=== PATIENT | female | born 1995 | race American Indian/Alaskan Native ===

== ENCOUNTER 2024-08-30 12:53 | Outpatient (CLI) | payer BC, SELFPAY ==
--- NOTE | 2024-08-30 13:00 | CRLHL7_ITS ---
For Patients: As a result of the Century Cures Act, medical imaging exams and procedure reports are released immediately into your electronic medical record. You may view this report before your referring provider. If you have questions, please contact your health care provider. INDICATION: First trimester dating and viability. TECHNIQUE: Ultrasound OB pelvis transabdominal and transvaginal. Real-time melissa-scale imaging of the pelvis was performed. COMPARISON: None. FINDINGS: Intrauterine gestation: Single. heart activity (bpm): Regular 169. [place]-rump length: 1.8 cm cm. Estimated ultrasound age: 8 weeks 2 day. GLO by ultrasound: 04/09/2025. Yolk sac: Normal. Perigestational hemorrhage: None. Ovaries and adnexa: Corpus luteal cyst is identified on the left side. Dominant follicle/simple cyst within the left ovary measuring 2.6 x 2.5 x 2.4 cm. Suspicious pelvic fluid collections: None. IMPRESSION: Single viable intrauterine with estimated gestational age of 8 weeks 2 days and GLO of 04/09/2025. Dictated by Rod Butts MD @ 08/31/2024 12:37:00 PM (Electronically Signed)
== END 2024-08-30 12:54 | disposition home or self-care (01) ==
LOC: US 12:54
PROVIDERS: Visit Provider Midwife
DX: Z34.91 Encounter for supervision of normal pregnancy, unspecified, first trimester (principal); Z3A.08 8 weeks gestation of pregnancy
CPT/HCPCS: 76817; 83021; 86703; 86706; 86803; 86850; 86900; 86901; 87086; 87340; 87491; 87591

== ENCOUNTER 2024-08-30 14:17 | Outpatient (CLI) | payer BC, SELFPAY ==
[2024-08-30 19:23] LABS: Chlamydia DNA Amplified* NOT DETECTED (No Detected); GC DNA Amplified* NOT DETECTED (No Detected)
== END 2024-08-30 14:18 | disposition home or self-care (01) ==
PROVIDERS: Visit Provider Midwife
DX: Z34.91 Encounter for supervision of normal pregnancy, unspecified, first trimester (principal); Z3A.08 8 weeks gestation of pregnancy
CPT/HCPCS: 83020; 83021; 85660; 86592; 86703; 86704; 86706; 86762; 86787; 86803; 86850; 86900; 86901; 87086; 87340; 87491; 87591

== ENCOUNTER 2024-12-01 10:49 | Outpatient (CLI) | payer BC, SELFPAY ==
--- OUTSIDE RECORDS SUMMARY | 2024-11-20 17:29 | XMS_ITS | Encounter Summary ---
Author Organization [facility] Address [address] [place] [address] Care Team Providers Care Truck Dispatcher Name Role Phone Benito Barnhart APRN, C.N.P. Primary Care Provi brayden Reason for Visit * Reason Comments Nausea Abdominal Pain Encounter Details Date Type Department Care Team (Latest Contact Info) Description 11/20/2024 5:29 PM CDT - 11/20/2024 5:55 PM CDT Hospital Encounter [facility], Third Floor [address] [place] [phone] Trice Carty M.D. [address] [place] [address] 20 Weeks Gestation (HCC) [Z3A.20] (Primary Dx) Discharge Disposition: Home or Self Care Social History Tobacco Use Types Packs/Day Years Used Date Smoking Tobacco: Former Cigarettes Q uit: 2017 Smokeless Tobacco: Never Alcohol Use Standard Drinks/Week Comments Not Currently 0 (1 standard drink = 0.6 oz pur e alcohol) [facility] Utilities Answer Date Recorded In the past 12 months has e electric, gas, oil, or water company threatened to shut off services in your home? No 08/22/2024 Hunger Vital Sign Answer Date Recorded Within the past 12 months, y ou worried that your food would run out before you got the money to buy more. Never true 08/23/19 25 Within the past 12 months, t he food you bought just didn't last and you didn't have money to get more. Never true 08/22/2024 PRAPARE - Transportation Answer Date Re corded In the past 12 months, has l ack of transportation kept you from medical appointments or from getting medications? No 08/05 In the past 12 months, has l ack of transportation kept you from meetings, work, or from getting things needed for daily living? No 08/22/2024 Depression Answer Date Recor ded PHQ-9 Total Score (max 27) 1 08/22 Housing Stability Answer Date Recorded What is your living situation today? 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 documented as of this encounter Progress Notes * Trice Carty M.D. - 11/20/2024 5:59 PM CDT SUBJECTIVE Roseanne Jaimes is a 29 y.o. with an Estimated Date of Delivery: 04/09/25. Gestational age is 20w0d determined by LMP. She presents with complaints of nausea and indigestion since yesterday evening. She noticed it after a meal and states it comes in waves. No emesis or diarrhea, no fever, some chills. Feels bloated and describes it like as if she had food poisoning. The nausea is associated with upper GI pain that also comes in waves. - Nutritional intake: tolerating PO - Medications trialed: Tums - Pertinent OB history or complications: none, per report. No history available for review. Has notyet had Anatomy scan. - No VB, LOF, FM is active, No ctx OB History Para Term AB Living 1 SAB IAB Ectopic Molar Multiple Live Births # Outcome Date GA Lbr Ministerio/2nd Weight Sex Type Anes PTL Lv 1 Current REVIEW OF SYSTEMS A comprehensive review of systems was negative. OBJECTIVE VITAL SIGNS No ALLERGIES Allergies[1] PHYSICAL EXAM Constitutional: in NAD. Alert and oriented. Abd: Soft, mildly tender to palpation diffusely on both sides, periumbilical and RUQ/LUQ. No rebound or guarding. FHTs: normal on doppler [place]: no ctx palpated at bedside. Skin turgor: normal No results found for this or any previous visit (from the past 24 hours). Medications and/or IV fluids given: patient declined. ASSESSMENT / PLAN IRP: #1 Nausea and indigestion - Offered nausea Rx, and GI cocktail, patient declines. She thinks that normalizing her BM may alsohelp as she feels bloated. She may try dulcolax and MiraLAX. - DC to home. - Discussed natural methods for management (regular hydration, small, frequent meals, bland food) #3 Intra-uterine at 20w0d - Next visit: Next week PATIENT EDUCATION Ready to learn, barriers to learning: none; learning preferences include listening. Explained diagnosis and treatment plan; patient expressed understanding of the content. Trice Carty M.D. [1] No Known Allergies documented in this encounter Nursing Notes * Vannesa Suh R.N. - 11/20/2024 6:07 PM CDT Pt presents with complaints of upper abdominal cramping, indigestion and nausea. Denies emesis or diarrhea. Has been able to tolerate PO fluids. Dr. Carty in to discuss POC with pt. Pt discharged [place] with significant other. documented in this encounter Plan of Treatment Not on file documented as of this encounter Visit Diagnoses Diagnosis 20 Weeks Gestation (HCC) [Z3A.20]- Primary documented in this encounter Additional Health Concerns Assessment Noted Time PHQ-9 Depression Total Score: 1 08/23/19 25 8:09 AM CDT documented as of this encounter Care Teams Truck Dispatcher Relationship Specialty Start Date End Date Bentio Barnhart APRN, C.N.P. [address] [place] [phone] PCP - General 01/19/24 documented as of this encounter
--- NOTE | 2024-12-01 11:15 | CRLHL7_ITS ---
For Patients: As a result of the 21st Century Cures Act, medical imaging exams and procedure reports are released immediately into your electronic medical record. You may view this report before your referring provider. If you have questions, please contact your health care provider. OB ULTRASOUND SURVEY LMP: 07/03/2024. GLO by LMP: 04/09/2025. GA: 21 w, 4 d. INDICATION: FAS with TV TECHNIQUE: Real time melissa scale imaging of the fetus was performed. Evaluate anatomy. Transvaginal imaging performed. Transvaginal imaging performed to better evaluate the cervix, placental edge, and head. position: Vertex. Cervix: Visualized. Technique: Transvaginal. Length of closed cervix: 2.5 cm. No funneling. Placenta/cord: Anterior. Technique: Transvaginal. Placenta tip to internal OS: 3.6 cm. Umbilical Cord: 3-vessel cord. Placenta insertion: Central. Amniotic Fluid: 5.1 cm SDP (greater than/equal to: 2- less than 8 cm). SURVEY: Observed Structures. Calvarium/Spine: Cerebellum: Suboptimal. Cisterna Magna: Suboptimal. Nuchal Fold: Suboptimal. Lateral Ventricle: 7.9 mm. CSP: Yes. Midline Falx: Yes. Choroid Plexus: Yes. Spine: Yes. Abdomen: Stomach: Yes. Abd Cord Insertion: Yes. Urinary Bladder: Yes. Kidneys: Yes. Diaphragm: Yes. Face: Nose/lips: Yes. Orbital view: Yes. Profile: Yes. Limbs: Upper Extremities: Yes. Lower Extremities: Yes. Hands: Yes. Feet: Yes. Vascular: 4-Chamber Heart: Yes. LVOT: Yes. RVOT: Yes. 3VV: Yes. 3VTV: Yes. BPD: 5.5 cm. 22 w, 6 d, 90 percent. HC: 20.5 cm. 22 w, 4 d, 81 percent. AC: 18.4 cm. 23 w, 1 d, 88 percent. FL: 4.1 cm. 23 w, 1 d, 87 percent. FL/AC ratio: 22.1 percent. HC/AC ratio: 1.1. heart rate: 152 bpm. age by this US: 23 w, 0 d. GLO by this US: 03/30/2025. EFW: 561.1 g. Weight: 1 lbs, 4 oz. Percentile by GLO: >97 percent. IMPRESSION: 1. Sonographic gestational age 23 weeks 0 days and sonographic due date 03/30/2025. Sonographic age is 10 days ahead of clinical age. 2. Estimated weight greater than 97th percentile. Abdominal circumference 88th percentile. 3. Difficult visualization of the head structures due to position. Short-term follow-up recommended. 4. Transvaginal cervical measurement is 2.5 cm. No funneling. Martínez Quintana M.D. Diagnostic Radiologist [email or web address] DSM/jj jj/Dictated by: Martínez Quintana MD @ 12/01/2024 4:05:00 PM (Electronically Signed)
--- OUTSIDE RECORDS SUMMARY | 2024-12-02 00:28 | XMS_ITS | Clinical Summary ---
Author Organization [facility] Address [address] [place] [address] Care Team Providers Care Senior It Business Analyst Name Role Phone Benito Barnhart APRN, C.NFidel Primary Care Provi brayden Source Comments Patient records contain information from all sites at [facility]. For routine questions regarding patient records, call [phone] during business hours, M-F 8:00 AM - 5:00 PM Central Time. Record requests for emergency care only can be directed to [phone] at any time[address] Allergies No known active allergies Medications multivit 23-vtbxyoid-fnq- chrom 2.5-200-1 mg-mg-mg capsule Take 1 tablet by mouth. 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 20 Weeks Gestation (HCC) [Z3A.20] (Primary Dx) Discharge Disposition: Home or Self Care from Last 3 Months Immunizations Immunization Administration Dates Next Due 4vHPV (discontinued) 01/06/2013,07/27/19 13,05/11/2012,2011 DTP 01/13/2001 DTP / Hib 1996,1996,1996 DTaP (Infanrix, Tripedia) 01/13/2001 DTaP / Hib 04/27/1997 DTaP, Unspecified 01/24/2008 HepB, Unspecified 1996,1996,01/12/19 96 IPV 01/13/2001 MMR 01/13/2001,04/27/1997 OPV 1996,1996,1996 Td Preservative Free (TENIVA C, DECAVAC) 12/20/2019 Tdap 01/24/2008 DYLLAN 01/24/2008,04/27/1997 Family History Medical History Relation Name Comments Diabetes type II Father History of substance abuse Father COPD Grandfather 1 maternal History of substance abuse Grandfather 1 maternal Cancer Grandfather 2 paternal Cancer Maternal Grandmother Relation Name Status Comments Father Grandfather 1 maternal Grandfather 2 paternal Maternal Grandmother Social History Tobacco Use Types Packs/Day Years Used Date Smoking Tobacco: Former Cigarettes Q uit: 2017 Smokeless Tobacco: Never Tobacco Cessation:Counseling Given: Not Answered Alcohol Use Standard Drinks/Week Comments Not Currently 0 (1 standard drink = 0.6 oz pur e alcohol) [facility] Utilities Answer Date Recorded In the past 12 months has e [employer], gas, oil, or water company threatened to [...] your living situation today? 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 Gender Identity Female 08/22/2024 8:10 AM CDT Sexual Orientation Straight 08/22/2024 8: 10 AM CDT Last Filed Vital Signs Vital Sign Reading Time Taken Comments Blood Pressure 107/61 11/20/2024 6:02 PM CDT Pulse 82 08/22/2024 8:15 AM CDT Temperature 36.3 C (97.3 F) 11/20/2024 6:02 PM CDT Respiratory Rate 18 11/20/2024 6:02 PM CDT Oxygen Saturation 100% 03/28/2022 2:00 PM CDT Inhaled Oxygen Concentration - - Weight 79.2 kg (174 lb 9.7 oz) 08/22/2024 8:15 A M CDT Height 173.9 cm (5' 8.47) 08/22/2024 8:15 AM CD T Body Mass Index 26.19 08/22/2024 8:15 AM CDT Plan of Treatment Health Maintenance Due Date Last Done Comments HIV Screening 1996 Pneumococcal vaccine (0-49 y ears) (1 of 2 - PCV) 01/11/2015 COVID-19 Vaccine ( - 2023-2 5 season) 2024 Influenza Vaccine (#1) 2024 Depression Monitoring (PHQ-9) 12/22/2024 08/22/2024 Tdap vaccine - (27- 36 weeks) (1 - Tdap) 01/08/2025 12/20/2019, 01/24/2008, 01/24/2008, Additional history exists RSV vaccine - (32-3 6 weeks) or 60+ years (1 - Risk 1-dose series) 02/12/2025 Cervical/Vaginal Cancer Screening 10/03/2026 10/04/2023, 10/04/2023, 12/20/2019, Additional history exists DTaP,Tdap,and Td Vaccines (9 - Td or Tdap) 12/19/2029 12/20/2019, 01/24/2008, 01/24/2008, Additional history exists Hepatitis B Vaccines Completed 1996, 1996, 1996 IPV Vaccines Completed 01/13/2001, 06/08, 1996, Additional history exists Varicella Vaccines Completed 01/24/2008, 04/27/1997 HPV Vaccines Completed 01/06/2013, 07/09, 05/11/2012, Additional history exists Hepatitis C Screening Completed 10/04/2023 Depression Monitoring (PHQ-9 for quality tracking) Completed 08/22/2024 Procedures Procedure Name Priority Date/Time Associated Diagnosis Comments HCV AB SCRN W/REFLEX TO HCV PCR, S Routine 10/04/2023 1:40 PM CDT Screening Test Laboratory HPV WITH GENOTYPING, PCR, THINPREP Routine 10/04/2023 1:23 PM CDT from Last 3 Months or Most Recently Relevant to Health Maintenance Results * HCV Ab Scrn w/Reflex to HCV PCR, Serum (10/04/2023 1:40 PM CDT) HCV Ab Screen, S Negative Negative 10/05/2023 2:22 AM CDT ECLR Blood (Blood, Venous) 10/04/2023 1:40 PM CDT 10/04/2023 9:03 PM CDT Narrative [facility] - 10/05/2023 2:22 AM CDT Specimen Information: Specimen ID: [id number] Specimen Type: Blood Specimen Collection Start Date: 10/04/2023 1:40 PM Specimen Received Date: 10/04/2023 9:03 PM Specimen ID: [id number] Specimen Type: Blood Specimen Collection Start Date: 10/04/2023 1:40 PM Specimen Received Date: 10/04/2023 9:03 PM us Joel Morrison APRN.N.P. , D.N.P. LAB MICROBIOLOGY - BLOOD ORDERABLES Final Result [facility] [address] [place] [id number], [facility] ECLR [facility] in [address] [address] * HPV with Genotyping, PCR, ThinPrep (10/04/2023 1:23 PM CDT) [facility] HPV with Genotyping, ThinPrep, PCR Negative Negative 10/05/2023 2:38 PM CDT ECLR Comment: Negative for high risk HPV by nucleic acid amplification. The following high risk HPV types were not detected: 16, 18, 31, 33, 35, 39, 45, 51, 52, 56, 58, 59, 66, and 68 This result does not rule out HPV in the patient, as the sensitivity of the test depends on the timing of the specimen collection and the quality of the specimen. Result should be correlated with patient's history, clinical presentation, and CELLAR SUPERVISOR cytology report. 10/04/2023 1:23 PM CDT 10/05/2023 10:39 AM CDT us Joel Morrison APRN.N.P. , D.N.P. LAB MICROBIOLOGY - GENERAL ORDERABLES Final Result [facility] [address] [place] [id number], [facility] ECLR [address] [place] [phone] from Last 3 Months or Most Recently Relevant to Health Maintenance Insurance [facility] [place] [id number] * Guarantor: Roseanne Jaimes Account Type Relation to Patient Date of Phone Billing Address Third Constitution Party Liability Self 1995 [id number] [place] [address] Care Teams Senior It Business Analyst Relationship Specialty Start Date End Date Benito Barnhart APRN, C.N.P. [address] [place] [address] [place] [id number] PCP - General 01/19/24
== END 2024-12-01 10:50 | disposition home or self-care (01) ==
LOC: US 10:49
PROVIDERS: Visit Provider Advanced Practice Midwife
DX: O28.3 Abnormal ultrasonic finding on antenatal screening of mother (principal); O36.62X0 Maternal care for excessive fetal growth, second trimester, not applicable or unspecified; Z3A.21 21 weeks gestation of pregnancy
CPT/HCPCS: 76805; 76817

== ENCOUNTER 2024-12-11 12:55 | Outpatient (CLI) | payer BC, SELFPAY | END 2024-12-11 12:56 | disposition home or self-care (01) | LOC: RAD 12:56 | PROVIDERS: Visit Provider Advanced Practice Midwife | DX: Q79.60 Ehlers-Danlos syndrome, unspecified (principal) | CPT/HCPCS: 93306 ==

== ENCOUNTER 2025-01-29 09:14 | Outpatient (CLI) | payer BC, SELFPAY | END 2025-01-29 09:15 | disposition home or self-care (01) | LOC: NFLDREF 09:14 | PROVIDERS: Visit Provider Advanced Practice Midwife | DX: Z34.03 Encounter for supervision of normal first pregnancy, third trimester (principal) | CPT/HCPCS: 86592 ==

== ENCOUNTER 2025-02-26 10:06 | Outpatient (CLI) | payer BC, SELFPAY ==
--- NOTE | 2025-02-26 10:15 | CRLHL7_ITS ---
For Patients: As a result of the Century Cures Act, medical imaging exams and procedure reports are released immediately into your electronic medical record. You may view this report before your referring provider. If you have questions, please contact your health care provider. GLO by LMP: 04/09/2025. GA: 34w, 0d. INDICATION: Check growth. CERVIX: Not visualized. POSITIONING: Vertex. AMNIOTIC FLUID: 7.1 cm SDP. PLACENTA: Technique: Transabdominal. PLACENTA POSITION: Anterior. DOPPLER: heart rate: 152 bpm. Biometry: BPD: 8.4 cm. 34w, 0d, 47 percent. HC: 31.4 cm. 35w, 1d, 43 percent. AC: 30.8 cm. 34w, 5d, 74 percent. FL: 7 cm. 36w, 0d, 88 percent. FL/AC ratio: 22.85 percent. HC/AC ratio: 1.02. EFW: 2579 g. Weight: 5 lbs, 11 oz. age by this US: 35w, 0d. GLO by this US: 04/02/2025. Percentile by GLO: 75 percent. IMPRESSION: Martínez Quintana M.D. Diagnostic Radiologist [email or web address] bM/Dictated by: Martínez Quintana MD @ 02/26/2025 3:47:00 PM (Electronically Signed)
== END 2025-02-26 10:07 | disposition home or self-care (01) ==
LOC: US 10:06
PROVIDERS: Visit Provider Midwife
DX: O28.3 Abnormal ultrasonic finding on antenatal screening of mother (principal); Z3A.34 34 weeks gestation of pregnancy
CPT/HCPCS: 76816

== ENCOUNTER 2025-03-14 11:23 | Outpatient (CLI) | payer BC, SELFPAY ==
[2025-03-15 12:07] LABS: Strep B DNA Probe Negative (Negative)
[2025-03-15 12:36] LABS: Strep B Susceptibility Needed? No
== END 2025-03-14 11:24 | disposition home or self-care (01) ==
LOC: NFLDREF 11:24
PROVIDERS: Visit Provider Midwife
DX: Z34.93 Encounter for supervision of normal pregnancy, unspecified, third trimester (principal)
CPT/HCPCS: 87081; 87653

== ENCOUNTER 2025-03-27 10:00 | Inpatient (IN) | payer BC, SELFPAY ==
[2025-03-27] VITALS (50 sets, daily range): BP systolic 115–136; BP diastolic 66–90; PULSE 61–101; RESP 16–22; TEMP 36.6–36.8; O2SAT 97–100; BMI 29.9
[2025-03-27 09:56] LABS: Amnisure Rom* POSITIVE
--- NOTE | 2025-03-27 11:20 | P.LDBA_ITS ---
Subjective History of Present Illness Time Seen by Provider: 11:14 Date Seen: 03/27/25 Narrative: Roseanne is a 30 yo at 38 1/7 weeks gestation being admitted to Labor and Delivery for PROM of clear fluid at about 0630 this morning. She has had some mild cramping and contractions since ROM. She continues to leak clear fluid. She denies any bleeding and endorses movement. She declines SVE at this time. Her full history and physical was dictated by KARI Acuna on 03/20/2025. Please see this for details. Due to broken foot and non-weight bearing, we recommend against waterbirth due to risk/strain to her foot and the need to emergently get out when she is not recommended to weight bear due to risk of worsening injury. Specific Issues/Plans Partner:??Cj H&P completed bySerge Stock CNM 03/20/25 # Anemia. Hgb 10.4 Ferritin 5 at 34wks. Starting PO iron. #Broken right foot at 36w-Non weight bearing x 4 weeks. [place] records sent to scanning. Right 5th metatarsal fracture. Seeing [place] ortho. 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 No work-up ever done cardiac echo recommended-normal EF 58% [facility] recommendations: Consider Anesthesiology consultation in 3rd trimester for delivery planning-declines Repeat growth US in 3rd trimester (32-36 wks). EFW 95% at 25wks. Will likely only want with additional indications. Consider IOL after 39.0 wks. [place] no to prolong to late term past 41wk. Shared decision making regarding IOL vs spontaneous labor. # shortened cervix-2.5cm here, 1.3cm at [place]. Offered progesterone but not given since >24wks No further testing indicated per [facility] #Hx substance use disorder- ETOH and MJ- sober since 1999, ?? Imaging:?? 08/30/2024-Single viable intrauterine with estimated gestational age of 8 weeks 2 days and GLO of 04/09/2025. 12/01/24- Suboptimal views of head. Otherwise anterior placenta, Cervix 2.5cm with no funneling. > 97% EFW. Repeat ordered in 2 weeks. -suboptimal views persist. EFW 95%. No further f/u recommended. 02/26/2025- EFW 75% RSV: declined COVID:??declined Flu:?declined? 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 30 yo at 38 1/7 weeks gestation? complicated by:?Anemia, Broken right foot at 36w-Non weight bearing x 4 weeks. [place] records sent to scanning, Hyperlaxity of joints-was diagnosed on symptoms only of Carolann Danlos by ortho. No work-up ever done, shortened cervix, Remote Hx substance use disorder Labor type: Induced/Spontaneous, Early labor? Category 1 FHR pattern.?? Labor complicated by: declines? GBS negative? ? PLAN:? 1. Routine intrapartum cares as ordered. Continue with expectant management at this time. We discussed augmentation with IV pitocin vs expectant management x6- 12 hours. She desires expectant management at this time. Will defer exam due to PROM. If contractions have not increased in frequency or intensity at 12 hours with review augmentation recommendation. We reviewed risk with expectant management with PROM including infection. 2. Monitoring per policy, intermittent? 3. Planning unmedicated . Recommend against waterbirth at this time due to non-weight bearing recommendation. Candidate for analgesia of choice.?? 4. Patient encouraged to reposition and ambulate to promote physiologic labor and .? 6. Anticipate ? Delivery/Labor/Induction Plan Plan: expectant management OB Result Labs Blood Type: O (+) positive OB Exam Physical Exam Vital signs: Temp Pulse Resp BP Pulse Ox 98.1 F 86 17 123/76 97 03/27/25 17:37 03/27/25 17:39 03/27/25 17:37 03/27/25 17:39 03/27/25 17:37 Narrative: Objective: Constitutional: Alert and oriented x3, mild distress, coping well Vital signs stable, see nurse documentation Abdomen: gravid, contractions palpate mild with contractions and soft between Cervix: deferred with PROM NST: 130 bpm/moderate variability/15x15 accelerations/no decelerations/ contractions every 5-7 minutes, mild Detailed Labor and Delivery Exam Patient Gravid: yes
--- NOTE | 2025-03-27 21:53 | P.OBPN_ITS ---
Subjective Date Seen: 03/27/25 Narrative: Roseanne is a 30 yo at 38 1/7 weeks gestation admitted to Labor and Delivery for PROM of clear fluid at about 0630 this morning. She has felt mild cramping and contractions that are now regular. She had her first SVE at 12 hours post ROM an was 5/90/-1. She is now starting to get uncomfortable and is considering epidural. She is frustrated because she is non-weight bearing on her foot and is limited on how she can move. Objective Exam: Objective: Constitutional: Alert and oriented x3, moderate distress, coping well Vital signs stable, see nurse documentation Abdomen: gravid, contractions palpate moderate/strong with contractions and soft between Cervix: 7 cm/90%/0 station/vertex Intermittent Auscultation: FHR 137 Vital Signs: Last Vital Signs Temp 98 F 03/27/25 21:29 Pulse 75 03/27/25 21:30 Resp 22 03/27/25 21:29 BP 136/90 H 03/27/25 21:30 Pulse Ox 100 03/27/25 21:29 Plan Plan: ASSESSMENT:? 30 yo at 38 1/7 weeks gestation? complicated by:?Anemia, Broken right foot at 36w-Non weight bearing x 4 weeks. [place] records sent to scanning, Hyperlaxity of joints-was diagnosed on symptoms only of Carolann Danlos by ortho. No work-up ever done, shortened cervix, Remote Hx substance use disorder Labor type: Induced/Spontaneous, Early labor? Intermittent Auscultation, reassuring? Labor complicated by: declines? GBS negative? ? PLAN:? 1. Routine intrapartum cares as ordered. Continue with expectant management at this time. 2. Monitoring per policy, intermittent; switch to continuous with epidural placement. 3. Desires epidural. Candidate for analgesia of choice, if desired. Will place IV and draw labs before epidural. 4. Patient encouraged to reposition to promote physiologic labor and .? 6. Anticipate ?
[2025-03-27 22:08] LABS: Hematocrit* 31.4 % (33.0-51.0); Hemoglobin* 10.0 gm/dL (12.0-16.0); Immature Granulocytes Abs Auto 0.01 K/uL (0.00-0.30); Immature Granulocytes Pct Auto 0.1 %; Lymphocytes Absolute Auto 2.19 K/uL (0.90-2.90); Mean Corpuscular HGB Conc 32 gm/dL (32-36); Mean Corpuscular Hemoglobin 25 pg (26-34); Mean Corpuscular Volume 78 fL (80-100); RDW Coefficient of Variation % 14.1 % (11.5-15.5); Red Blood Count* 4.01 m/uL (4.00-5.20); White Blood Count* 9.25 K/uL (4.50-11.00)
[2025-03-27 22:10] LABS: Slide Review Reflex No
[2025-03-27] MEDS: LACTATED RINGERS 1000 ML 1,000 ML IV (22:10)
[2025-03-27] MEDS: LIDOCAINE 2% (PF) 5 ML VIAL EPIDURAL (22:38)
[2025-03-27] MEDS: ROPIVACAINE 0.2% 100 ml 100 ML 12 MG EPIDURAL (22:51)
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
[2025-03-28] VITALS (32 sets, daily range): BP systolic 104–139; BP diastolic 55–83; PULSE 63–135; RESP 16–19; TEMP 36.6–36.8; O2SAT 97–100
[2025-03-28] MEDS: OXYTOCIN 30 unit/500 ML in NS 30 UNIT/500 ML BAG 300 UNIT IVPB (02:51)
--- NOTE | 2025-03-28 03:22 | W.PM.VAGDE_ITS ---
OB Procedure Vag Delivery Mother Details Mother Details: The patient is a 30 year-old, 1, now Para 1, admitted on 03/27/25 at 38.1 weeks gestation for PROM. : 1 Para: 1 Weeks Gestation: 38.2 Admission Date: 03/27/25 Additional Details Amniotic Membrane Status: SROM Amniotic Membrane Rupture Date: 03/27/25 Amniotic Membrane Rupture Time: 06:30 Amniotic Membrane Fluid Description: Clear Analgesia/Anesthesia Type: Epidural Waterbirth: No [place]: Yes ([facility] only) Intrapartal Events: ROM >18 Hours Labor Onset: 21:36 Complete: 02:10 Pushin:18 Heart: heart tones during second stage were category II with variables present and terminal bradycardia. Initially recovered with position changes and maternal guided breathing. When it no longer resolved, patient was instructed to push and delivered shortly after. Delivery Details Delivery Date: 03/28/25 Delivery Time: 02:36 Route of delivery: Gender: Male Viability: Alive; Heart Rate Present Position at Delivery: OA Delivery Details: Patient was admitted for PROM of clear fluid at 0630 on 03/27. She was expectantly managed and progressed normally. She utilized an epidural for pain management. Patient was complete at 0210 and pushing at 0218. of a viable male at 0236 in left tilt, semi fowlers on the bed. Vertex delivered OA. Nuchal cord x2 reduced at perineum. No shoulder. Body delivered easily and without incident. Infant passed to mothers abdomen with a vigorous cry. Cord was clamped and cut at > 5 minutes. APGARS were 7 at one minute and 9 at five minutes respectively. Mouth was bulb suctioned. Intact placenta with a 3 vessel cord de livered spontaneously at 0253. Fundus firm. 1st degree perineal laceration identified and repaired in typical fashion. QBL 450 cc. Mother and baby stable; mother plans to breastfeed. weight pending. 1 Minute Interval Total Score: 7 5 Minute Interval Total Score: 9 Additional Details Shoulder Dystocia: No Placenta Delivery Time: 02:53 Placental Delivery Description: Spontaneous Delivery repair: Vicryl Procedure Done: Global Blood Loss: 450 Laceration: Perineal - 1st Degree Blood Loss Measurement Type: QBL Sponge/Need Count Correct: Yes Cord Vessel Description: 3 Vessels, Nuchal Cord (x2) and Reduced Event Summary Status: Mother and were stable after delivery. Disposition: floor
[2025-03-28] MEDS: IBUPROFEN 600 MG TABLET PO ×3 (04:44→18:24)
[2025-03-28] MEDS: ACETAMINOPHEN 500 MG TABLET 1000 MG PO ×3 (09:00→21:09)
[2025-03-28] MEDS: DOCUSATE SODIUM 100 MG CAPSULE PO (09:00)
[2025-03-29] VITALS: BP 124/72; PULSE 72; RESP 16; TEMP 36.3; O2SAT 98
[2025-03-29] MEDS: IBUPROFEN 600 MG TABLET PO ×3 (00:01→20:46)
[2025-03-29] MEDS: ACETAMINOPHEN 500 MG TABLET 1000 MG PO (05:31)
[2025-03-29 06:22] LABS: Hemoglobin* 8.0 gm/dL (12.0-16.0)
[2025-03-29 08:40] VITALS: BP 119/67; PULSE 77; RESP 16; TEMP 36.9; O2SAT 97
[2025-03-29 15:28] VITALS: BP 122/74; PULSE 76; RESP 16; TEMP 36.7; O2SAT 98
--- NOTE | 2025-03-29 18:02 | P.OBPN_ITS ---
OB - PN:Subj Subjective Time Seen by Provider: 12:45 Date Seen: 03/29/25 Patient comments OB post-: pain well controlled [place] status: and doing well [place] feeding status: exclusively Narrative: Roseanne is a now day 1. She had a at 38w1d and gave to a viable baby boy. She is doing well . Pain is controlled. She does endorse passing blood clots smaller than dime size but is not saturating pads or passing any large clots. She is voiding without problem and is passing gas. Hemoglobin is down to 8.0 today. No lightheaded or dizziness. Will start EOD oral iron supplement. Roseanne is and reports her nipples are sore but intact. She shares her baby has a lip tie that pediatrics will look at today. RN assisting with nursing as needed. JOSE Carter OB - PN: Obj Exam Physical Exam: Vital signs: Temp Pulse Resp BP Pulse Ox O2 Del Method 98.0 F 76 16 122/74 98 Room Air 03/29/25 15:28 03/29/25 15:28 03/29/25 15:28 03/29/25 15:28 03/29/25 15:28 03/29/25 15:28 Narrative: Constitutional: no apparent distress Respiratory: no labored breathing, lungs clear to auscultation Cardiovascular: regular heart rate and rhythm Abdomen: soft, uterine fundus firm 1cm below umbilicus Extremities: LLE in walking boot (broke foot 2 weeks ago), RLE- no swelling, full sensation Perineum: declines assessment Mood: calm, cooperative, bonding well with baby OB - PN: Obj Data Labs Labs: Laboratory Results - last 24 hr 03/27/25 03/29/25 22:00 06:13 Hgb 8.0 L RPR Screen Non Reactive OB - PN: A/P Delivery Assessment and Plan (1) normal course: Status: Acute (2) Lactating mother: Status: Acute (3) Anemia: Status: Acute Plan day 1 Routine cares support Continue oral iron supplement Mary Beth Tim APRN, CNM, was present for visit and have reviewed and agree with documentation by the Certified Nurse Midwifery Student.? Plan day: 1 Plan: routine care
[2025-03-29] MEDS: FERROUS SULFATE 325 MG TABLET PO (19:16)
[2025-03-29] MEDS: DOCUSATE SODIUM 100 MG CAPSULE PO (19:16)
[2025-03-29 20:42] VITALS: BP 115/74; PULSE 73; RESP 18; TEMP 36.8; O2SAT 97
[2025-03-30 03:55] VITALS: BP 100/64; PULSE 65; RESP 16; O2SAT 98
[2025-03-30 08:20] VITALS: BP 114/72; PULSE 71; RESP 16; TEMP 36.8; O2SAT 97
--- NOTE | 2025-03-30 13:30 | PM.OBDSVD1 ---
DS: Providers Provider Time Seen by Provider: 07:30 Date Seen: 03/30/25 Date of admission: 03/27/25 10:00 Primary care physician: Not a Local Provider Admitting Clinician: Harini Saeed CNM Attending Physician on discharge: Magy Gary CNM Date of Discharge: 03/30/25 DS: Diagnosis Discharge Diagnosis (1) normal course: Status: Acute (2) Lactating mother: Status: Acute (3) Broken foot: Status: Acute Problem details: right foot broken on 03/12/25 Exam Narrative: Exam Narrative: GENERAL APPEARANCE:? normal affect, alert, no distress? MOOD:? appropriate? CHEST:? clear to auscultation and percussion? HEART:? regular rate and rhythm? BREASTS: soft, nontender, no erythema, nipples intact? ABDOMEN:? soft, non-tender the uterine fundus is firm and is appropriate for the stage of recovery.? PERINEUM:? mild edema of the perineum, there is a 1st degree perineal laceration that is healing well.? EXTREMITIES:? normal and no edema? Const: Vital Signs, click to edit/add: Vital Signs - 24 hr 03/29/25 15:28 03/29/25 20:42 03/30/25 03:55 Temperature 98.0 F 98.3 F Pulse Rate [Right Pulse Oximeter] 76 73 65 Respiratory Rate 16 18 16 Blood Pressure [Ri ght Arm] 122/74 115/74 100/64 Pulse Oximetry 98 97 98 Oxygen Delivery Me thod Room Air Room Air Room Air 03/30/25 08:20 Temperature 98.3 F Pulse Rate [Right Pulse Oximeter] 71 Respiratory Rate 16 Blood Pressure [Ri ght Arm] 114/72 Pulse Oximetry 97 Oxygen Delivery Me thod Room Air OB - DS: Summary Hospital Course Hospital Course: The patient is a 30 year old G 1 P 1001 at 38 weeks gestation that was admitted to the Center on 03/27/25 for PROM. She had an uncomplicated vaginal delivery. She delivered a viable male . She is breast feeding. the patient has done well. For contraception, Roseanne plans to use natural family planning. Briefly discussed Lactational Amenorrhea Method, potential to ovulate prior to menses; advised pt to do further research to avoid an unplanned . Peripartum Data Infant delivery method: Vaginal Laceration description: Perineal - 1st Degree complications: none [place] Gender: Male Discharge Plan: Home Status at Discharge Functional status at discharge: independent ambulation Overall status at discharge: patient is progressing back to baseline Time Spent with Patient Time attestation: Total time spent providing and/or coordinating discharge services: Time spent: Greater than 30 minutes Discharge Plan Discharge Disposition: Home, Self-Care Date of Admission: 03/27/25 10:00 Attending Provider on Discharge: Magy Gary Primary Care Provider: Provider,Not a Local Condition: Stable Anticipated Discharge Date/Time: 03/30/25 08:36 Discharge Medications: Continued DHA 200 mg capsule PO Discharge Orders: Discharge Order (Routine); Ordered 03/30/25 Ordered By: Magy Gary Patient Education: OB Vaginal/Breast Feeding Additional Instructions: Discharge instructions were reviewed with the patient including signs and symptoms of infection and home going medications.? Lifting Restrictions: 20 pounds for 6? weeks? ?? Off Work or School for 6 weeks.? ?? Symptoms to report to doctor:? -Bleeding that saturates more than one pad per hour? -Passing clots larger than the size of a golf ball? -Pain not relieved by prescribed medication? -Fever above 100.4 degrees Fahrenheit? -A foul vaginal odor? -Difficulty in emotions, mood and functions? -Thoughts of hurting yourself and/or ? -Painful, reddened area in your breast? -Any drainage, redness or tenderness in your IV/epidural site? -Severe headache that doesn't improve after taking medications? -Changes in vision, including temporary loss of vision, blurred vision, and/or light sensitivity? -Upper abdominal pain (usually under ribs on the right side)? -Decrease in urination or painful, frequent urinating? -Chest pain? -Shortness of breath? -Tenderness or pain with redness and/swelling in the calf(s) of your leg? ?? Follow Up in clinic in 2 and 6 weeks.? ?? consultation services are available to all mothers and babies for the first year after delivery.? To make an appointment, please call [phone].? ? Activity Level: Activity as Tolerated Discharge Diet: Regular Follow Up Appointments: Provider,Not a Local [Primary Care Provider, Family Practice] Harini Saeed CNM [Certified Nurse Auto Leasing Manager, Certified Nurse Auto Leasing Manager] Referral Note: 2 weeks PP Forms: MyHealth Info Instructions
== END 2025-03-30 12:20 | disposition home or self-care (01) | DRG 560 ==
LOC: OB OUT 10:11 → OB 10:11
PROVIDERS: Advanced Practice Midwife; Admitting Provider Midwife; Visit Provider Midwife
DX: O42.02 Full-term premature rupture of membranes, onset of labor within 24 hours of rupture (principal); Z37.0 Single live birth; O76 Abnormality in fetal heart rate and rhythm complicating labor and delivery; O70.0 First degree perineal laceration during delivery; O99.02 Anemia complicating childbirth; D64.9 Anemia, unspecified; S92.351D Displaced fracture of fifth metatarsal bone, right foot, subsequent encounter for fracture with routine healing; Q79.62 Hypermobile Ehlers-Danlos syndrome; F10.11 Alcohol abuse, in remission; Z3A.38 38 weeks gestation of pregnancy
CPT/HCPCS: 01967; 36415; 76815; 84112; 85018; 85025; 86592; 86850; 86900; 86901; A9270; J2795; J7120